=== PATIENT | female | born 1980 | race Caucasian/White ===

== ENCOUNTER 2018-06-25 22:19 | Emergency (ER) | payer BC ==
--- OUTSIDE RECORDS SUMMARY | 2018-06-25 22:22 | XMS REPORT | Continuity of Care Document ---
:1980 Author Organization Interface Problems Problem Status Onset Date Classification Date Comments Source Reported Medications Medication Details Route Status Patient Ordering Order Source Instructions Provider Date Allergies, Adverse Reactions, Alerts Substance Category Reaction Severity Reaction Status Date Comments Source type Reported Immunizations Immunization Date Given Site Status Last Updated Comments Source Results Order Results Value Reference Date Interpretation Comments Source Name Range Vital Signs Vital Sign Value Date Comments Source Encounters Location Location Encounter Encounter Reason Attending ADM DC Status Source Details Type Number For Provider Date Date Visit Outpatient [id number] HAIM 06/19 [facility] [id number] HAIM 07/31 [facility] [place] Procedures Procedure Code Date Perfomer Comments Source
--- OUTSIDE RECORDS SUMMARY | 2018-06-25 22:22 | XMS REPORT | Clinical Summary ---
:1980 Author Organization [facility] Address [address] [place] [address] Care Team Providers Name Role Phone Say Colon MD Primary Care Provider Allergies No Known Allergies Current Medications Prescription Sig. Disp. Refills Start Date End Date Status levothyroxine Take 50 mcg by Active (SYNTHROID, LEVOXYL) mouth every 50 mcg tablet morning. dexamethasone Take 2 tabs (8 12 tablet 0 06/06/2018 06/14/2018 (DECADRON) 4 MG tablet mg) every AM for 5 days then 1 tab in the AM for 2 days amoxicillin-pot Take 1 tablet 14 tablet 0 06/06/2018 2018 clavulanate by mouth every (AUGMENTIN) 875-125 mg 12 (twelve) per tablet hours for 7 days. Active Problems Problem Noted Date Migraine 06/02/2018 Encounters Date Type Specialty Care Team Description 2018 Office Visit Urogynecology Rhonda, Recurrent UTI (Primary Dx); Barbara Xiao Bladder pain; MD Rigo Routine screening for STI (sexually transmitted infection); KEITH (stress urinary incontinence, female) 06/06/2018 Emergency Emergency Medicine Lisbeth Chen Acute non-recurrent maxillary sinusitis (Primary Dx); MD Petar Sinus pain; Unilateral occipital headache; Paresthesia; Non-cardiac chest pain; Intermittent palpitations 06/02/2018 - Emergency Obstetrics and Thom Lebron Other migraine with status migrainosus, intractable (Primary Dx); 06/03/2018 Gynecology MD Tramaine Hypokalemia; Evie, Gastroesophageal reflux disease without esophagitis; Beata Espinosa MD Tension headache; Ranjana, Skip, Bilateral occipital neuralgia; DO Other migraine without status migrainosus, intractable 06/02/2018 Procedure Pass Obstetrics and Gynecology after 06/24/2017 Family History Medical History Relation Name Comments Nephrolithiasis Sister Relation Name Status Comments Brother Alive Father Alive Mother Alive Sister Alive Social History Tobacco Use Types Packs/Day Years Used Date Former Smoker Smokeless Tobacco: Never Used Comments: <1 year 20 years ago Alcohol Use Drinks/Week oz/Week Comments Yes occasionally Sex Assigned at Date Recorded Not on file Last Filed Vital Signs Vital Sign Reading Time Taken Blood Pressure 116/74 2018 9:15 AM CDT Pulse 61 2018 9:15 AM CDT Temperature 36.2 C (97.2 F) 2018 9:15 AM CDT Respiratory Rate 16 06/06/2018 11:02 AM CDT Oxygen Saturation 100% 06/06/2018 11:02 AM CDT Inhaled Oxygen Concentration - - Weight 52.2 kg (115 lb) 2018 9:15 AM CDT Height 170.2 cm (5' 7") 2018 9:15 AM CDT Body Mass Index 18.01 2018 9:15 AM CDT Plan of Treatment Date Type Specialty Care Team Description 07/29/2018 Office Visit Physical Therapy Barbara Ellis MD [address] [address] Mary Lee, PT Health Maintenance Due Date Last Done Comments CERVICAL CANCER SCREENING 2001 INFLUENZA VACCINE 05/22/2018 Procedures Procedure Name Priority Date/Time Associated Comments Diagnosis CHLAMYDIA/N. Routine 2018 4:22 Results for this GONORRHOEAE RNA, TMA PM CDT procedure are in the results section. [place](R), BACTERIAL Routine 2018 4:22 Recurrent UTI Results for this VAGINOSIS/VAGINITIS PM CDT procedure are in the results section. TEST AUTHORIZATION Routine 2018 4:22 Results for this PM CDT procedure are in the results section. MEASURE POST VOID Routine 2018 9:32 Recurrent UTI Results for this RESIDUAL AM CDT procedure are in the results section. POC URINALYSIS Routine 2018 9:26 Recurrent UTI Results for this DIPSTICK AM CDT procedure are in the results section. CT SINUS W CONTRAST STAT 06/06/2018 4:42 Results for this PM CDT procedure are in the results section. CT HEAD WO CONTRAST STAT 06/06/2018 4:30 Results for this PM CDT procedure are in the results section. CA INJECT TRIGGER Routine 06/06/2018 3:07 Results for this POINT, 1 OR 2 PM CDT procedure are in the results section. ESTIMATED GFR STAT 06/06/2018 12:25 Results for this PM CDT procedure are in the results section. COMPREHENSIVE STAT 06/06/2018 12:25 Results for this METABOLIC PANEL PM CDT procedure are in the results section. HC COMPLETE BLD COUNT STAT 06/06/2018 12:25 Results for this W/AUTO DIFF PM CDT procedure are in the results section. ECG 12-LEAD STAT 06/06/2018 11:12 Results for this AM CDT procedure are in the results section. MRI BRAIN WO CONTRAST STAT 06/02/2018 8:43 Results for this PM CDT procedure are in the results section. CT RENAL STONE STAT 06/02/2018 6:06 Results for this PROTOCOL PM CDT procedure are in the results section. ESTIMATED GFR STAT 06/02/2018 5:33 Results for this PM CDT procedure are in the results section. COMPREHENSIVE STAT 06/02/2018 5:33 Results for this METABOLIC PANEL PM CDT procedure are in the results section. HCG QUALITATIVE, URINE STAT 06/02/2018 5:33 Results for this SCREEN PM CDT procedure are in the results section. URINALYSIS SCREEN AND STAT 06/02/2018 5:33 Results for this MICROSCOPY, WITH PM CDT procedure are in REFLEX TO CULTURE the results section. HC COMPLETE BLD COUNT STAT 06/02/2018 5:33 Results for this W/AUTO DIFF PM CDT procedure are in the results section. URINE CULTURE STAT 06/02/2018 5:33 Results for this PM CDT procedure are in the results section. CT HEAD WO CONTRAST STAT 06/02/2018 4:39 Results for this PM CDT procedure are in the results section. after 06/24/2017 Results CHLAMYDIA/N. GONORRHOEAE RNA, TMA (2018 4:22 PM) Chlamydia trachomatis RNA, TMA NOT DETECTED [facility] Neisseria gonorrhoeae RNA, TMA NOT DETECTED [facility] Comment: REFERENCE RANGE:NOT DETECTED This test was performed using the APTIMA(R) COMBO2 Assay (GENKontestPROBE). Resulting Agency Comment Performing Organization Information: Site ID: [id number] Name: [facility] Address: [address] [place] [address], [place] [address] Director: Paramjit Cannon MD Performing Organization Address City/State/Zipcode Phone Number [facility] [address] [place] [address] [facility] TEST AUTHORIZATION (2018 4:22 PM) TEST(S) ORDERED ON [facility] [employer] [facility] [facility] TEST CODE: [id number] [facility] [facility] CLIENT CONTACT: JODY [facility] [facility] REPORT ALWAYS MESSAGE [facility] SIGNATURE Comment: [facility] [facility] The laboratory testing on this patient was verbally requested or confirmed by the ordering physician or his or her authorized technical sales representatives after contact with an employee of [facility]. Federal regulations require that we maintain on file written authorization for all laboratory testing.Accordingly we are asking that the ordering physician or his or her authorized technical sales representatives sign a copy of this report and promptly return it to the client relation specialist. Signature: (Always message) [facility] Comment: [facility] [facility] Please fax this signed form to [phone]. Please do not attempt to return this document by other methods. Documents will not be viewed by a technical sales representatives. Please do not use this fax number for other service requests. Resulting Agency Comment Performing Organization Information: Site ID: [id number] Name: [facility] Address: [address] [place] [address] Director: Dr. Logan Veloz Performing Organization Address City/State/Zipcode Phone Number [facility] [facility] [address] [place] [address] SURESWAB(R), BACTERIAL VAGINOSIS/VAGINITIS (2018 4:22 PM) BV category NOT SUPPORTIVE [facility] Lactobacillus species NOT DETECTED Log (cells/mL) [facility] Atopobium vaginae NOT DETECTED Log (cells/mL) [facility] Megasphaera species NOT DETECTED Log (cells/mL) [facility] Gardnerella vaginalis NOT DETECTED Log (cells/mL) [facility] Comment: REFERENCE RANGE: BV Category: NOT SUPPORTIVE NOT SUPPORTIVE OF BV: The pattern of results is not supportive of a diagnosis of BV: 1) Presence of Lactobacillus spp., G. vaginalis levels less than 6.0 log cells/mL, and absence of A. vaginae and Megasphaera spp; or 2) Absence of all targeted organisms; or 3) Absence of Lactobacillus spp. plus G. vaginalis detected at levels less than 6.0 log cells/mL and absence of A. vaginae and Megasphaera spp. EQUIVOCAL FOR BV: The pattern of results is neither supportive nor not supportive of a diagnosis of BV. The patient may be in transition into or out of BV: Presence of Lactobacillus spp. plus G. vaginalis (greater or equal to 6.0 log cells/mL) and/or one of the other BV-associated pathogens. SUPPORTIVE OF BV: The pattern of results is supportive of a diagnosis of BV: Absence of Lactobacillus spp. and presence of G. vaginalis greater than or equal to 6.0 log cells/mL and/or one or both of the other BV-associated pathogens. Concentration for Lactobacilli (L. acidophilus/crispatus, L. jensenii) are collectively reported under the term "Lactobacillus spp.", as these species are among the peroxide producing Lactobacilli thought to be protective against bacterial vaginosis. Atopobium vaginae, Megasphaera spp., and Gardnerella (greater than 6.0 log cells/mL) have been associated with vaginosis when present in the absence of peroxidase producing Lactobacilli. This test was developed and its analytical performance characteristics have been determined by [facility]. It has not been cleared or approved by FDA. This assay has been validated pursuant to the CLIA regulations and is used for clinical purposes. Sureswab(r) trichomonas NOT DETECTED [facility] vaginalis RNA, QL, TMA Comment: REFERENCE RANGE: NOT DETECTED This test was performed using the APTIMA(R) Trichomonas vaginalis assay (Gen-Probe(R)). For additional information, please refer to [email or web address] C. albicans, DNA NOT DETECTED [facility] C. glabrata, DNA NOT DETECTED [facility] C. tropicalis, DNA NOT DETECTED [facility] C. parapsilosis, DNA NOT DETECTED [facility] Comment: REFERENCE RANGE: NOT DETECTED This test was developed and its analytical performance characteristics have been determined by [facility]. It has not been cleared or approved by FDA. This assay has been validated pursuant to the CLIA regulations and is used for clinical purposes. Specimen Swab Resulting Agency Comment Performing Organization Information: Site ID: [id number] Name: [facility] Address: [address] [place] [id number] Director: Paramjit Cannon MD Performing Organization Address City/State/Zipcode Phone Number [facility] [address] [place] [phone] [facility] Measure post void residual (2018 9:32 AM) Total volume, urine 0ml POC urinalysis dipstick (2018 9:26 AM) Color urine, POC Yellow Clarity urine, POC Clear Glucose urine, POC Negative Negative Bilirubin urine, POC Negative Negative Ketones urine, POC Negative Negative Specific gravity urine, POC 1.020 1.005 - 1.030 Blood urine, POC Negative Negative pH urine, POC 6.0 5.0, 5.5, 6.0, 6.5, 7.0, 7.5, 8.0, 8.5 Protein urine, POC Negative Negative Urobilinogen urine, POC <2.0 <2.0 Nitrite urine, POC Negative Negative Leukocyte esterase urine, POC Negative Negative Specimen Urine CT Sinus W Contrast (06/06/2018 4:42 PM) Narrative Performed At Study: CT SINUS W CONTRAST. HM RADIANT HISTORY: Sinusitisacute ( 4wks)uncomplicated. COMPARISON:None. TECHNIQUE: Multiple axial CT images of the paranasal sinuses performed with intravenous contrast. Sagittal and coronal reconstructions performed. CT imaging was performed with iterative reconstruction technique and/or automated exposure control to reduce radiation dose. FINDINGS: Maxillary sinuses: There is mild mucosal thickening of the bilateral maxillary sinuses mostly along the floors up to 7 mm in the right. No air-fluid levels. The maxillary infundibula and ostia are patent. Ethmoid sinuses: Well-developed and well aerated without fluid or mucosal thickening. Frontal sinuses: Left frontal sinuses well-developed. The right frontal sinus is hypoplastic. The frontal drainage pathways are patent bilaterally. Sphenoid sinuses: Well developed and well aerated without mucosal thickening or fluid. The bilateral sphenoid ostia are patent. There is aeration of the sphenoid recesses, anatomic variant. Very thin bone is seen along the carotid canal bilaterally bulging into the posterior lateral hoang of the sphenoid sinuses, respectively. Nasal fossa: Well aerated. The olfactory recesses are well aerated. The nasal septum is slightly deviated to the left with a small spur at its apex. The cribriform plates, lateral lamellae, and fovea ethmoidalis are intact. Others: There are no signs of osseous destruction. The intraorbital structures and the orbital hoang are within normal limits. The visualized intracranial structures are unremarkable. Overlying soft tissues are unremarkable. No abnormal enhancement. IMPRESSION: Very mild maxillary sinus disease. Drainage pathways are patent. [facility]-[id number] Procedure Note [facility], Radiology Results Incoming - 06/06/2018 4:55 PM CDT Study: CT SINUS W CONTRAST. HISTORY: Sinusitis acute ( 4wks) uncomplicated. COMPARISON:None. TECHNIQUE: Multiple axial CT images of the paranasal sinuses performed with intravenous contrast. Sagittal and coronal reconstructions performed. CT imaging was performed with iterative reconstruction technique and/or automated exposure control to reduce radiation dose. FINDINGS: Maxillary sinuses: There is mild mucosal thickening of the bilateral maxillary sinuses mostly along the floors up to 7 mm in the right. No air-fluid levels. The maxillary infundibula and ostia are patent. Ethmoid sinuses: Well-developed and well aerated without fluid or mucosal thickening. Frontal sinuses: Left frontal sinuses well-developed. The right frontal sinus is hypoplastic. The frontal drainage pathways are patent bilaterally. Sphenoid sinuses: Well developed and well aerated without mucosal thickening or fluid. The bilateral sphenoid ostia are patent. There is aeration of the sphenoid recesses, anatomic variant. Very thin bone is seen along the carotid canal bilaterally bulging into the posterior lateral hoang of the sphenoid sinuses, respectively. Nasal fossa: Well aerated. The olfactory recesses are well aerated. The nasal septum is slightly deviated to the left with a small spur at its apex. The cribriform plates, lateral lamellae, and fovea ethmoidalis are intact. Others: There are no signs of osseous destruction. The intraorbital structures and the orbital hoang are within normal limits. The visualized intracranial structures are unremarkable. Overlying soft tissues are unremarkable. No abnormal enhancement. IMPRESSION: Very mild maxillary sinus disease. Drainage pathways are patent. [facility]-[id number] Performing Organization Address City/State/Zipcode Phone Number [facility] [address] [place] [address] CT Head Wo Contrast (06/06/2018 4:30 PM)Only the most recent of2 resultswithin the time period is included. Narrative Performed At [facility]:Headacheacutesevereworst [place] of life COMPARISON:CT head 06/02/2018. MRI brain 06/02/2018. TECHNIQUE: Noncontrast head CT performed using radiation dose reduction techniques.Technical factors are evaluated and adjusted to ensure appropriate moderation of exposure.Automated dose management technology is applied to adjust radiation exposure while achieving a diagnostic quality image. FINDINGS: No significant interval change appearing since the prior CT from 06/02/2018. Again noted is subtle biparietal subcortical hypoattenuation, which corresponds to prominent perivascular spaces on the MRI from 06/02/2018, for example image 12 of series 10 on that study. No acute intra or extra-axial hemorrhage identified. The kirk-white matter differentiation is preserved. The basal ganglia, thalami, midbrain, renato and cervicomedullary junction are unremarkable. No mass, mass effect, or midline shift is seen. Ventricles and sulci are normal in appearance for patient's age.Basal cisterns are patent. Calvarium is intact. The orbital contents are symmetric and normal in appearance. The visualized paranasal sinuses are unremarkable. The mastoid air cells and middle ear cavities are clear. IMPRESSION: No acute intracranial abnormality identified, unchanged when compared with prior CT from 06/02/2018. [facility]-[id number] Procedure Note Interface, Radiology Results Incoming - 06/06/2018 4:50 PM CDT EXAMINATION: CT HEAD WO CONTRAST CLINICAL HISTORY: Headache acute severe worst [place] of [place] COMPARISON: CT head 06/02/2018. MRI brain 06/02/2018. TECHNIQUE: Noncontrast head CT performed using radiation dose reduction techniques. Technical factors are evaluated and adjusted to ensure appropriate moderation of exposure. Automated dose management technology is applied to adjust radiation exposure while achieving a diagnostic quality image. FINDINGS: No significant interval change appearing since the prior CT from 06/02/2018. Again noted is subtle biparietal subcortical hypoattenuation, which corresponds to prominent perivascular spaces on the MRI from 06/02/2018, for example image 12 of series 10 on that study. No acute intra or extra-axial hemorrhage identified. The kirk-white matter differentiation is preserved. The basal ganglia, thalami, midbrain, renato and cervicomedullary junction are unremarkable. No mass, mass effect, or midline shift is seen. Ventricles and sulci are normal in appearance for patient's age. Basal cisterns are patent. Calvarium is intact. The orbital contents are symmetric and normal in appearance. The visualized paranasal sinuses are unremarkable. The mastoid air cells and middle ear cavities are clear. IMPRESSION: No acute intracranial abnormality identified, unchanged when compared with prior CT from 06/02/2018. [facility]-[id number] Performing Organization Address City/State/Zipcode Phone Number [facility] [address] [place] [address] DIGITAL BLOCK (06/06/2018 3:07 PM) Narrative Performed At Lisbeth Chen MD 06/09/2018 11:17 PM Digital Block/Trigger Injections Performed by: ALLAN RAMSEY Authorized by: LISBETH CHEN Consent: Consent obtained:Verbal Consent given by:Patient Risks discussed:Infection, pain, swelling and unsuccessful block Alternatives discussed:Alternative treatment Indications: Indications:Pain relief Location: Therapuetic Trigger Point Injection:2 Pre-procedure details: Neurovascular status: intact Skin preparation:Alcohol Procedure details (see MAR for exact dosages): Needle gauge:24 G Anesthetic injected:Lidocaine 2% w/o epi Injection procedure:Anatomic landmarks identified, anatomic landmarks palpated, negative aspiration for blood and incremental injection Post-procedure details: Outcome:Pain improved Patient tolerance of procedure:Tolerated well, no immediate complications Comments: Patient initially reported pain in the greater occipitals but later identified the left upper and lateral border of the scapula as the region of pain. 2 injections were given at this site. Estimated GFR (06/06/2018 12:25 PM)Only the most recent of2 resultswithin the time period is included. GFR Non Af Amer >90 mL/min/1.73 m2 [facility] DEPARTMENT OF PATHOLOGY AND GENOMIC MEDICINE GFR Af Amer >90 mL/min/1.73 m2 [facility] DEPARTMENT OF Comment: PATHOLOGY AND GENOMIC Chronic kidney disease: <60 mL/min/1.73m2 MEDICINE Kidney failure: <15 mL/min/1.73m2 The estimated GFR is calculated from the IDMS-traceable Modification of Diet in Renal Disease Equation. The accuracy of the calculation is poor when the creatinine is normal. Calculated values >90 mL/min/1.73m2 are not reported. This equation has not been validated in children (<18 years), women, the elderly (>70 years), or ethnic groups other than Caucasians and Americans. Specimen Plasma specimen Performing Organization Address City/State/Zipcode Phone Number [facility] DEPARTMENT OF PATHOLOGY AND [address] [place], [place] [id number] [place] [address] CBC with platelet and differential (06/06/2018 12:25 PM)Only the most recent of2 resultswithin the time period is included. WBC 6.20 4.50 - 11.00 k/uL [facility] DEPARTMENT OF PATHOLOGY AND GENOMIC MEDICINE RBC 5.06 4.20 - 5.50 m/uL [facility] DEPARTMENT OF PATHOLOGY AND GENOMIC MEDICINE HGB 13.9 12.0 - 16.0 g/dL [facility] DEPARTMENT OF PATHOLOGY AND GENOMIC MEDICINE HCT 41.8 37.0 - 47.0 % [facility] DEPARTMENT OF PATHOLOGY AND GENOMIC MEDICINE MCV 82.6 82.0 - 100.0 fL [facility] DEPARTMENT OF PATHOLOGY AND GENOMIC MEDICINE MCH 27.5 27.0 - 34.0 pg [facility] DEPARTMENT OF PATHOLOGY AND GENOMIC MEDICINE MCHC 33.3 31.0 - 37.0 g/dL [facility] DEPARTMENT OF PATHOLOGY AND GENOMIC MEDICINE RDW - SD 38.6 37.0 - 55.0 fL [facility] DEPARTMENT OF PATHOLOGY AND GENOMIC MEDICINE MPV 9.6 8.8 - 13.2 fL [facility] DEPARTMENT OF PATHOLOGY AND GENOMIC MEDICINE Platelet count 305 150 - 400 k/uL [facility] DEPARTMENT OF PATHOLOGY AND GENOMIC MEDICINE Nucleated RBC 0.00 /100 WBC [facility] DEPARTMENT OF PATHOLOGY AND GENOMIC MEDICINE Neutrophils 74.9 (H) 39.0 - 69.0 % [facility] DEPARTMENT OF PATHOLOGY AND GENOMIC MEDICINE Lymphocytes 19.2 (L) 25.0 - 45.0 % [facility] DEPARTMENT OF PATHOLOGY AND GENOMIC MEDICINE Monocytes 4.5 0.0 - 10.0 % [facility] DEPARTMENT OF PATHOLOGY AND GENOMIC MEDICINE Eosinophils 0.6 0.0 - 5.0 % [facility] DEPARTMENT OF PATHOLOGY AND GENOMIC MEDICINE Basophils 0.6 0.0 - 1.0 % [facility] DEPARTMENT OF PATHOLOGY AND GENOMIC MEDICINE Immature granulocytes 0.2Comment: 0.0 - 1.0 % [facility] DEPARTMENT OF "Immature PATHOLOGY AND GENOMIC granulocytes" MEDICINE (promyelocytes, myelocytes, metamyelocytes) Specimen Blood Performing Organization Address City/State/Zipcode Phone Number [facility] DEPARTMENT OF PATHOLOGY AND [address] [place] [address] [employer] MEDICINE Comprehensive metabolic panel (06/06/2018 12:25 PM)Only the most recent of2 resultswithin the time period is included. Sodium 141 135 - 148 mEq/L [facility] DEPARTMENT OF PATHOLOGY AND GENOMIC MEDICINE Potassium 3.9 3.5 - 5.0 mEq/L [facility] DEPARTMENT OF PATHOLOGY AND GENOMIC MEDICINE Chloride 100 98 - 112 mEq/L [facility] DEPARTMENT OF PATHOLOGY AND GENOMIC MEDICINE CO2 25 24 - 31 mEq/L [facility] DEPARTMENT OF PATHOLOGY AND GENOMIC MEDICINE Anion gap 16@ANIO (H) 7 - 15 mEq/L [facility] DEPARTMENT OF PATHOLOGY AND GENOMIC MEDICINE BUN 7 6 - 20 mg/dL [facility] DEPARTMENT OF PATHOLOGY AND GENOMIC MEDICINE Creatinine 0.6 0.5 - 0.9 mg/dL [facility] DEPARTMENT OF PATHOLOGY AND GENOMIC MEDICINE Glucose 97 65 - 99 mg/dL [facility] DEPARTMENT OF PATHOLOGY AND GENOMIC MEDICINE Calcium 9.9 8.3 - 10.2 mg/dL [facility] DEPARTMENT OF PATHOLOGY AND GENOMIC MEDICINE Protein 8.1 6.3 - 8.3 g/dL [facility] DEPARTMENT OF Comment: PATHOLOGY AND GENOMIC [place] 4.6-7.0 g/dL MEDICINE 1 week 4.4-7.6 g/dL 7 months-1year5.1-7.3 g/dL 1-2 years5.6-7.5 g/dL >3 years6.0-8.0 g/dL 18-150 6.3-8.3 g/dL Albumin 4.7 3.5 - 5.0 g/dL [facility] DEPARTMENT OF PATHOLOGY AND GENOMIC MEDICINE A/G ratio 1.4 0.7 - 3.8 [facility] DEPARTMENT OF PATHOLOGY AND GENOMIC MEDICINE Alkaline phosphatase 43 35 - 104 U/L [facility] DEPARTMENT OF PATHOLOGY AND GENOMIC MEDICINE AST 16 10 - 35 U/L [facility] DEPARTMENT OF PATHOLOGY AND GENOMIC MEDICINE ALT 15 5 - 50 U/L [facility] DEPARTMENT OF PATHOLOGY AND GENOMIC MEDICINE Total bilirubin 0.6 0.0 - 1.2 mg/dL [facility] DEPARTMENT OF PATHOLOGY AND GENOMIC MEDICINE Specimen Plasma specimen Performing Organization Address City/[facility] Phone Number [facility] DEPARTMENT OF PATHOLOGY AND [address] [place] [address] [facility] ECG 12 lead (06/06/2018 11:12 AM) Ventricular rate 82 [facility] Atrial rate 82 [facility] MUSE CA interval 138 [facility] MUSE QRSD interval 86 HM MUSE QT interval 356 [facility] QTC interval 415 [facility] P axis 1 77 HM MUSE QRS axis 1 97 [facility] T wave axis 59 [facility] EKG impression Normal sinus rhythm-Rightward axis-Borderline [facility] ECG-No previous ECGs available- Performing Organization Address City/[facility] Phone Number [facility] [address] [place] [address] MRI Brain Wo Contrast (06/02/2018 8:43 PM) Narrative Performed At EXAMINATION: MRI BRAIN WO CONTRAST RADIANT CLINICAL HISTORY: intractable headache COMPARISON:None TECHNIQUE: Multiplanar and multisequence MRI imaging of the brain was obtained without contrast. FINDINGS: Axial diffusion weighted images of the brain shows no diffusion restriction to suggest acute ischemia. T1 images shows no intracranial mass or mass effect. Gradient images shows no abnormal hemosiderin deposition abnormality. There is no evidence of acute hemorrhage. FLAIR imaging shows no significant FLAIR signal changes to suggest prior ischemic or inflammatory insult. No migraine headache related FLAIR signal changes identified. T2 imaging shows no acute hydrocephalus or extra-axial fluid collection identified. The major flow voids in the skull base are identified.Minimal mucosal thickening is noted in the inferior maxillar y sinuses as well as a retention cysts. There is no acute fluid level. Orbits are intact. Soft tissues are within normal limits. Sagittal T1 images shows no midline mass lesion. The craniocervical junction is intact.Coronal images shows no midline shift or gross asymmetries. IMPRESSION: No acute intracranial abnormality identified. No abnormality identified to explain patient's headache. [facility]-[id number] Procedure Note Interface, Radiology Results Incoming - 06/02/2018 9:38 PM CDT EXAMINATION: MRI BRAIN WO CONTRAST CLINICAL HISTORY: intractable headache COMPARISON: None TECHNIQUE: Multiplanar and multisequence MRI imaging of the brain was obtained without contrast. FINDINGS: Axial diffusion weighted images of the brain shows no diffusion restriction to suggest acute ischemia. T1 images shows no intracranial mass or mass effect. Gradient images shows no abnormal hemosiderin deposition abnormality. There is no evidence of acute hemorrhage. FLAIR imaging shows no significant FLAIR signal changes to suggest prior ischemic or inflammatory insult. No migraine headache related FLAIR signal changes identified. T2 imaging shows no acute hydrocephalus or extra-axial fluid collection identified. The major flow voids in the skull base are identified. Minimal mucosal thickening is noted in the inferior maxillary sinuses as well as a retention cysts. There is no acute fluid level. Orbits are intact. Soft tissues are within normal limits. Sagittal T1 images shows no midline mass lesion. The craniocervical junction is intact. Coronal images shows no midline shift or gross asymmetries. IMPRESSION: No acute intracranial abnormality identified. No abnormality identified to explain patient's headache. [facility]-[id number] Performing Organization Address City/State/Zipcode Phone Number [facility] [address] [place] [address] CT Renal Stone Protocol (06/02/2018 6:06 PM) Narrative Performed At EXAMINATION:CT RENAL STONE PROTOCOL [facility] CLINICAL HISTORY:Flank painstone disease suspected TECHNIQUE: Multiple axial images of the abdomen and pelvis were obtained without intravenous administration of iodinated contrast. Lack of IV contrast reduces the sensitivity of the exam.Sagittal and coronal computerized reformatted images were also obtained. CT imaging was performed with iterative reconstruction techniques and/or automated exposure control to reduce radiation dose. COMPARISON:None. IMPRESSION: 1.The unenhanced kidneys, ureters, and urinary bladder are within normal limits.There is no hydronephrosis or definite nephrolithiasis. A few tiny calcifications in the pelvis are felt to all represent phleboliths. 2.There are couple of benign cysts in the right hepatic lobe measuring up to 1 cm. 3.The unenhanced spleen, pancreas, gallbladder, and adrenals are within normal limits. 4.No small or large bowel obstruction or inflammation is seen.The stomach is unremarkable. The appendix is not definitely seen, but there are no inflammatory changes near the cecum. 5.Uterus and adnexa are unremarkable. 6.There is no abnormal fluid collection or significant lymphadenopathy. 7.No significant skeletal abnormality is seen. [id number] Procedure Note [facility], Radiology Results Incoming - 06/02/2018 6:27 PM CDT EXAMINATION: CT RENAL STONE PROTOCOL CLINICAL HISTORY: Flank pain stone disease suspected TECHNIQUE: Multiple axial images of the abdomen and pelvis were obtained without intravenous administration of iodinated contrast. Lack of IV contrast reduces the sensitivity of the exam. Sagittal and coronal computerized reformatted images were also obtained. CT imaging was performed with iterative reconstruction techniques and/or automated exposure control to reduce radiation dose. COMPARISON: None. IMPRESSION: 1. The unenhanced kidneys, ureters, and urinary bladder are within normal limits. There is no hydronephrosis or definite nephrolithiasis. A few tiny calcifications in the pelvis are felt to all represent phleboliths. 2. There are couple of benign cysts in the right hepatic lobe measuring up to 1 cm. 3. The unenhanced spleen, pancreas, gallbladder, and adrenals are within normal limits. 4. No small or large bowel obstruction or inflammation is seen. The stomach is unremarkable. The appendix is not definitely seen, but there are no inflammatory changes near the cecum. 5. Uterus and adnexa are unremarkable. 6. There is no abnormal fluid collection or significant lymphadenopathy. 7. No significant skeletal abnormality is seen. [id number] Performing Organization Address City/State/Zipcode Phone Number [facility] [address] [place] [address] Urinalysis screen and microscopy, with reflex to culture (06/02/2018 5:33 PM) Specimen site Catheterized [facility] DEPARTMENT OF PATHOLOGY AND GENOMIC MEDICINE Color, UA Straw [facility] DEPARTMENT OF PATHOLOGY AND GENOMIC MEDICINE Appearance, UA Clear [facility] DEPARTMENT OF PATHOLOGY AND GENOMIC MEDICINE Specific gravity, UA 1.008 1.001 - 1.035 [facility] DEPARTMENT OF PATHOLOGY AND GENOMIC MEDICINE pH, UA 7.0 5.0 - 8.5 [facility] DEPARTMENT OF PATHOLOGY AND GENOMIC MEDICINE Protein, UA Negative Negative [facility] DEPARTMENT OF PATHOLOGY AND GENOMIC MEDICINE Glucose, UA Negative Negative [facility] DEPARTMENT OF PATHOLOGY AND GENOMIC MEDICINE Ketones, UA Negative Negative [facility] DEPARTMENT OF PATHOLOGY AND GENOMIC MEDICINE Bilirubin, UA Negative Negative [facility] DEPARTMENT OF PATHOLOGY AND GENOMIC MEDICINE Blood, UA Negative Negative [facility] DEPARTMENT OF PATHOLOGY AND GENOMIC MEDICINE Nitrite, UA Negative Negative [facility] DEPARTMENT OF PATHOLOGY AND GENOMIC MEDICINE Urobilinogen, UA <2.0 <2.0 [facility] DEPARTMENT OF PATHOLOGY AND GENOMIC MEDICINE Leukocyte esterase, UA Negative Negative [facility] DEPARTMENT OF PATHOLOGY AND GENOMIC MEDICINE Epithelial cells, UA <1 /HPF [facility] DEPARTMENT OF PATHOLOGY AND GENOMIC MEDICINE WBC, UA <1 0 - 4 /HPF [facility] DEPARTMENT OF PATHOLOGY AND GENOMIC MEDICINE RBC, UA <1 0 - 5 /HPF [facility] DEPARTMENT OF PATHOLOGY AND GENOMIC MEDICINE Bacteria, UA None seen None seen [facility] DEPARTMENT OF PATHOLOGY AND GENOMIC MEDICINE Yeast, UA None seen [facility] DEPARTMENT OF PATHOLOGY AND GENOMIC MEDICINE Yeast with pseudohyphae, UA None seen [facility] DEPARTMENT OF PATHOLOGY AND GENOMIC MEDICINE Specimen Urine Performing Organization Address City/State/Zipcode Phone Number [facility] DEPARTMENT OF PATHOLOGY AND [address] [place] [phone] [facility] hCG qualitative, urine screen (06/02/2018 5:33 PM) hCG qualitative, urine NegativeComment: [facility] DEPARTMENT OF Sensitivity of HCG test: 25 PATHOLOGY AND GENOMIC mIU/mL MEDICINE Specimen Urine Performing Organization Address City/State/Zipcode Phone Number [facility] DEPARTMENT OF PATHOLOGY AND [address] [place] [phone] [facility] MEDICINE Urine culture (06/02/2018 5:33 PM) Urine culture SEE COMMENTComment: Bacteriuria [facility] DEPARTMENT OF PATHOLOGY screen negative. AND GENOMIC MEDICINE Performing Organization Address City/State/Zipcode Phone Number [facility] DEPARTMENT OF PATHOLOGY AND [address] [place] [phone] GENOMIC MEDICINE after 06/24/2017 Insurance Payer Benefit Plan / Group Subscriber ID Type Phone Address [facility] [employer] IN AREA/O BLUE ESSENTIALS xxxxxxxxxxxx O
[2018-06-25] MEDS ORDERED: predniSONE 20 MG TAB ONE (22:56)
[2018-06-25] MEDS ORDERED: CYCLOBENZAPRINE 10 MG TAB ONE (22:56)
--- NOTE | 2018-06-25 23:19 | EDPHYS ---
Physician Documentation [facility] Name: Sangita Goncalves Age: 38 yrs Sex: Female : 1980 Arrival Date: 06/25/2018 Time: 22:23 Bed 14 Private MD: Say Colon E ED Physician Gilberto Burleson HPI: 06/25 23:14 This 38 yrs old Female presents to ER via Ambulatory with complaints of Neck rn Swelling, HIGH HEART RATE,LEFT SIDE NUMBNESS. 23:14 The patient or guardian complains of pain, that is chronic. The symptoms are located rn diffusely. Onset: The symptoms/episode began/occurred 1 month(s) ago. Associated signs and symptoms: Pertinent positives: headache, Paresthesias Pertinent negatives: fever, bladder incontinence, bowel incontinence, vomiting, weakness. The pain does not radiate. Severity of symptoms: At their worst the symptoms were moderate, in the emergency department the symptoms have improved. The patient has experienced similar episodes in the past. The patient has been recently seen by a physician:. Reports on and off headache and neck pain for 1 month, has been seen multiple times, has had ct scans, MRI of brain, just saw neuro today, states outpt MRI neck ordered for 1 week and still waiting, pain got worse so came in for MRI. NO new symptoms, No fever. . 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 - Ebola Screening: : Patient negative for fever greater than or equal to 101.5 degrees Fahrenheit, and additional compatible Ebola Virus Disease symptoms Patient denies exposure to infectious person Patient denies travel to an Ebola-affected area in the 21 days before illness onset. - Social history:: Smoking status: Patient/guardian denies using tobacco, Patient/guardian denies using alcohol, street drugs. - Family history:: not pertinent. - Hospitalizations: : No recent hospitalization is reported. ROS: 23:14 Constitutional: Negative for fever, chills, and weight loss, Eyes: Negative for injury, rn pain, redness, and discharge, ENT: Negative for injury, pain, and discharge, Neck: + neck pain Cardiovascular: Negative for edema, Respiratory: Negative for shortness of breath, cough, wheezing, and pleuritic chest pain, Abdomen/GI: Negative for abdominal pain, nausea, vomiting, diarrhea, and constipation, MS/Extremity: Negative for injury and deformity, Skin: Negative for injury, rash, and discoloration, Neuro: Negative for weakness, and seizure. Exam: 23:14 Constitutional: This is a well developed, well nourished patient who is awake, alert, rn appears anxious Head/Face: Normocephalic, atraumatic. Eyes: Pupils equal round and reactive to light, extra-ocular motions intact. Lids and lashes normal. Conjunctiva and sclera are non-icteric and not injected. Cornea within normal limits. Periorbital areas with no swelling, redness, or edema. ENT: Nares patent. No nasal discharge, no septal abnormalities noted. Oropharynx with no redness, swelling, or masses, exudates, or evidence of obstruction, uvula midline. Mucous membranes moist. Neck: Trachea midline, no thyromegaly or masses palpated, and no cervical lymphadenopathy. Supple, full range of motion without nuchal rigidity, or vertebral point tenderness. No Meningismus. Cardiovascular: Regular rate and rhythm with a normal S1 and S2. No gallops, murmurs, or rubs. Normal PMI, no JVD. No pulse deficits. Respiratory: Lungs have equal breath sounds bilaterally, clear to auscultation and percussion. No rales, rhonchi or wheezes noted. No increased work of breathing, no retractions or nasal flaring. MS/ Extremity: Pulses equal, no cyanosis. Neurovascular intact. Full, normal range of motion. Equal circumference. Neuro: Awake and alert, GCS 15, oriented to person, place, time, and situation. Cranial nerves II-XII grossly intact. Motor strength 5/5 in all extremities. Cerebellar exam normal. Normal gait. Vital Signs: 22:37 BP 129 / 95; Pulse 85; Resp 16; Temp 97.9(O); Pulse Ox 100% ; Weight 58.97 kg; Height 5 ao ft. 4 in. (162.56 cm); Pain 8/10; 22:37 Body Mass Index 22.31 (58.97 kg, 162.56 cm) ao MDM: 22:26 Patient medically screened. rn 23:14 Differential diagnosis: arthritis, Cervical Disc Herniation Cervical Discogenic Pain rn Cervical Raiculopathy Cervical Spondylosis cervical strain, Osteoarthritis Spondylolisthesis Spondylosis torticollis. Data reviewed: vital signs, nurses notes, old medical records, radiologic studies, plain films, and as a result, I will discharge patient. Counseling: I had a detailed discussion with the patient and/or guardian regarding: the historical points, exam findings, and any diagnostic results supporting the discharge/admit diagnosis, lab results, radiology results, the need for outpatient follow up, to return to the emergency department if symptoms worsen or persist or if there are any questions or concerns that arise at home. Special discussion: I discussed with the patient/guardian in detail that at this point there is no indication for admission to the hospital. It is understood, however, that if the symptoms persist or worsen the patient needs to return immediately for re-evaluation. Based on the history and exam findings, there is no indication for further emergent testing or inpatient evaluation. I discussed with the patient/guardian the need to see the neurologist for further evaluation of the symptoms. I discussed with the patient/guardian the need to see the primary care provider for further evaluation of the symptoms. ED course: Has cardiology appt tomorrow for u/s of carotids and echo, doesn't want to take medications here, will give prescription, xray taken earlier today negative for acute findings. . Administered Medications: 22:50 Not Given (Duplicate Order): Decadron 10 mg IM once rn 23:25 Not Given (Patient Refused): Flexeril 10 mg PO once ao 23:25 Not Given (Patient Refused): predniSONE 60 mg PO once ao Disposition: 06/25/18 23:18 Discharged to Home. Impression: Headache, Neck pain. - Condition is Stable. - Discharge Instructions: General Headache Without Cause, Migraine Headache. - Prescriptions for Cyclobenzaprine 10 mg Oral Tablet - take 1 tablet by ORAL route every 8 hours As needed; 20 tablet. Medrol (Sandor) 4 mg Oral Tablets, Dose Pack - take 1 tablet by ORAL route as directed - follow package instructions; 1 packet. - Medication Reconciliation Form, Thank You Letter, Antibiotic Education, Prescription Opioid Use form. - Follow up: Say Colon MD; When: As needed; Reason: Recheck today's complaints, Re-evaluation by your physician. - Problem is an ongoing problem. - Symptoms have improved. Signatures: Gilberto Burleson MD MD rn Ortiz, Alex, RN RN ao Corrections: (The following items were deleted from the chart) 23:27 23:18 06/25/2018 23:18 Discharged to Home. Impression: Headache; Neck pain. Condition ao is Stable. Forms are Medication Reconciliation Form, Thank You Letter, Antibiotic Education, Prescription Opioid Use. Follow up: Say Colon; When: As needed; Reason: Recheck today's complaints, Re-evaluation by your physician. Problem is an ongoing problem. Symptoms have improved. rn
--- NOTE | 2018-06-25 23:19 | ER ---
Nurse's Notes [facility] Name: Sangita Goncalves Age: 38 yrs Sex: Female : 1980 Arrival Date: 06/25/2018 Time: 22:23 Bed 14 Private MD: Say Colon E Diagnosis: Headache;Neck pain Presentation: 06/25 22:30 Presenting complaint: Patient states: Pain in the back of the head that radiates to the ao neck. Patient also complains of left side numbness and tingling and chest pain. Patient points at epigastric area. Patient report going to [facility] twice. [facility] run test and CT that was negative. Transition of care: patient was not received from another setting of care. Onset of symptoms is unknown. Risk Assessment: Do you want to hurt yourself or someone else? Patient reports no desire to harm self or others. Initial Sepsis Screen: Does the patient meet any 2 criteria? No. Patient's initial sepsis screen is negative. Does the patient have a suspected source of infection? No. Patient's initial sepsis screen is negative. Care prior to arrival: None. 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 - Ebola Screening: : Patient negative for fever greater than or equal to 101.5 degrees Fahrenheit, and additional compatible Ebola Virus Disease symptoms Patient denies exposure to infectious person Patient denies travel to an Ebola-affected area in the 21 days before illness onset. - Social history:: Smoking status: Patient/guardian denies using tobacco, Patient/guardian denies using alcohol, street drugs. - Family history:: not pertinent. - Hospitalizations: : No recent hospitalization is reported. Screenin:40 Abuse screen: Denies threats or abuse. Denies injuries from another. Nutritional ao screening: No deficits noted. Tuberculosis screening: No symptoms or risk factors identified. Fall Risk None identified. Assessment: 22:38 General: Appears in no apparent distress. comfortable, Behavior is calm, cooperative, ao appropriate for age. Pain: Complains of pain in scalp. Pain: Complains of pain in chest. Neuro: Level of Consciousness is awake, alert, obeys commands, Oriented to person, place, time, situation, Appropriate for age Moves all extremities. Full function Speech is normal. Cardiovascular: Capillary refill < 3 seconds Patient's skin is warm and dry. Cardiovascular: Reports chest pain. Respiratory: Airway is patent Respiratory effort is even, unlabored, Respiratory pattern is regular, symmetrical. GI: Abdomen is flat, non-distended. : No signs and/or symptoms were reported regarding the genitourinary system. EENT: No signs and/or symptoms were reported regarding the EENT system. Derm: No signs and/or symptoms reported regarding the dermatologic system. Musculoskeletal: Circulation, motion, and sensation intact. Range of motion: intact in all extremities. Vital Signs: 22:37 BP 129 / 95; Pulse 85; Resp 16; Temp 97.9(O); Pulse Ox 100% ; Weight 58.97 kg; Height 5 ao ft. 4 in. (162.56 cm); Pain 8/10; 22:37 Body Mass Index 22.31 (58.97 kg, 162.56 cm) ao ED Course: 22:23 Patient arrived in ED. al2 22:25 Say Colon MD is Private Physician. al2 22:26 Jonas Amato RN is Primary Nurse. ao 22:26 Gilberto Burleson MD is Attending Physician. rn 22:34 Triage completed. ao 22:37 Arm band placed on right wrist. Patient placed in an exam room, in a wheelchair, on ao pulse oximetry, Patient notified of wait time. 22:40 Patient has correct armband on for positive identification. Pulse ox on. NIBP on. ao 23:18 Say Colon MD is Referral Physician. rn 23:26 No provider procedures requiring assistance completed. Patient did not have IV access ao during this emergency room visit. Administered Medications: 22:50 Not Given (Duplicate Order): Decadron 10 mg IM once rn 23:25 Not Given (Patient Refused): Flexeril 10 mg PO once ao 23:25 Not Given (Patient Refused): predniSONE 60 mg PO once ao Outcome: 23:18 Discharge ordered by . rn 23:26 Discharged to home ambulatory. ao 23:26 Condition: stable 23:26 Discharge instructions given to patient, Instructed on discharge instructions, follow up and referral plans. Demonstrated understanding of instructions, follow-up care, medications, Prescriptions given X 2. 23:27 Patient left the ED. ao Signatures: Gilberto Burleson MD MD rn Ortiz, Alex, RN RN ao Love, Angelica al2
== END 2018-06-25 23:27 | disposition home or self-care (01) ==
LOC: ER 22:19
DX: M54.2 Cervicalgia (principal)
CPT/HCPCS: 72040; 99283; J7512

== ENCOUNTER 2021-08-19 07:41 | Emergency (ER) | payer BC ==
[2021-08-19 08:34] LABS: Absolute Lymphocytes (CBC) 1.1 K/uL (0.7-4.9); Basophils % 0.5 % (0-1.3); Hematocrit 40.1 % (36.0-45.0); Lymphocytes % 26.8 % (15.3-44.8); MPV 7.6 fL (7.6-11.3); RBC Red Blood Cell Count 4.91 M/uL (3.86-4.86)
[2021-08-19] MEDS ORDERED: NA CHLORIDE 0.9% 1,000 ML ONE (08:46)
[2021-08-19] MEDS ORDERED: CEFTRIAXONE 1000 MG/VIAL ONE (08:46)
[2021-08-19 08:51] LABS: ALT/SGPT 17 U/L (12-78); AST/SGOT 13 U/L (15-37); Albumin 3.9 g/dL (3.4-5.0); Alkaline Phosphatase 55 U/L (45-117); BUN Blood Urea Nitrogen 7 mg/dL (7-18); Bicarbonate 28 mmol/L (21-32); Bilirubin Direct < 0.1 mg/dL (0-0.2); Bilirubin Total 0.3 mg/dL (0.2-1.0); Glucose Level 102 mg/dL (74-106); Lipase 161 U/L (73-393); Potassium 3.6 mmol/L (3.5-5.1); Protein, Total 7.6 g/dL (6.4-8.2); Sodium Level 141 mmol/L (136-145)
--- NOTE | 2021-08-19 08:53 | EDPHYS ---
Physician Documentation [facility] Name: Sangita Goncalves Age: 41 yrs Sex: Female : 1980 Arrival Date: 08/19/2021 Time: 07:44 Bed 17 Private MD: Chen Cosme ED Physician Re Robison HPI: 08/19 08:20 This 41 yrs old Female presents to ER via Ambulatory with complaints of Flank ma2 Pain. 08:20 The patient complains of pain in the left mid back and right mid back. Associated signs ma2 and symptoms: Pertinent positives: dysuria, Pertinent negatives: urinary frequency, hematuria, nausea, pain radiating to the lower extremities. Severity of pain: At its worst the pain was very mild in the emergency department the pain is unchanged. The patient has experienced similar episodes in the past. has uti took Augmentin and Cipro, had normal ct a/p. 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 - Social history:: Smoking status: Patient denies any tobacco usage or history of. ROS: 08:21 Constitutional: Negative for fever, chills, and weight loss. ma2 08:21 All other systems are negative. Exam: 08:21 Constitutional: This is a well developed, well nourished patient who is awake, alert, ma2 and in no acute distress. Neck: Trachea midline, no thyromegaly or masses palpated, and no cervical lymphadenopathy. Supple, full range of motion without nuchal rigidity, or vertebral point tenderness. No Meningismus. Chest/axilla: Normal chest wall appearance and motion. Nontender with no deformity. No lesions are appreciated. Cardiovascular: Regular rate and rhythm with a normal S1 and S2. No gallops, murmurs, or rubs. Normal PMI, no JVD. No pulse deficits. Respiratory: Lungs have equal breath sounds bilaterally, clear to auscultation and percussion. No rales, rhonchi or wheezes noted. No increased work of breathing, no retractions or nasal flaring. Abdomen/GI: Soft, non-tender, with normal bowel sounds. No distension or tympany. No guarding or rebound. No evidence of tenderness throughout. Back: No spinal tenderness. No costovertebral tenderness. Full range of motion. Skin: Warm, dry with normal turgor. Normal color with no rashes, no lesions, and no evidence of cellulitis. MS/ Extremity: Pulses equal, no cyanosis. Neurovascular intact. Full, normal range of motion. Neuro: Awake and alert, GCS 15, oriented to person, place, time, and situation. Cranial nerves II-XII grossly intact. Motor strength 5/5 in all extremities. Sensory grossly intact. Cerebellar exam normal. Normal gait. Vital Signs: 07:56 BP 123 / 76; Pulse 70; Resp 16; Temp 98.2; Pulse Ox 96% on R/A; Weight 56.7 kg; Height ll1 5 ft. 7 in. (170.18 cm); Pain 7/10; 08:34 BP 123 / 76; Pulse 70; Resp 16; Temp 98.2; Pulse Ox 96% on R/A; Pain 5/10; jw6 07:56 Body Mass Index 19.58 (56.70 kg, 170.18 cm) ll1 MDM: 08:12 Patient medically screened. [facility] 08:21 Differential diagnosis: pyelonephritis, UTI, pancreatitis. [facility] 08:52 Data reviewed: vital signs, nurses notes. Counseling: I had a detailed discussion with ma2 the patient and/or guardian regarding: the historical points, exam findings, and any diagnostic results supporting the discharge/admit diagnosis, the presence of at least one elevated blood pressure reading (>120/80) during this emergency department visit, the need for outpatient follow up. Response to treatment: the patient's symptoms have markedly improved after treatment. 08/19 08:14 Order name: Basic Metabolic Panel; Complete Time: 08:52 [facility] 08/19 08:14 Order name: CBC with Diff; Complete Time: 08:47 [facility] 08/19 08:14 Order name: Hepatic Function; Complete Time: 08:52 az2 08/19 08:14 Order name: Lipase; Complete Time: 08:52 [facility] 08/19 09:16 Order name: Urine Dipstick-Ancillary EDMS 08/19 07:47 Order name: Urine Dipstick-Ancillary (obtain specimen) ma2 08/19 07:47 Order name: Urine Test (obtain specimen) ma2 08/19 08:14 Order name: IV Saline Lock; Complete Time: 08: ma2 08/19 08:14 Order name: Labs collected and sent; Complete Time: ma2 08/19 08:16 Order name: Renal Ultrasound-Complete EDMS Administered Medications: : Drug: Rocephin (cefTRIAXone) 1 grams Route: IV; Rate: calculated rate; Site: left [facility] antecubital; : Drug: NS 0.9% 1000 ml Route: IV; Rate: 1 bolus; Site: left antecubital; [facility] Disposition Summary: 08/19/21 08:53 Discharge Ordered Location: Home ma2 Condition: Stable ma2 Diagnosis - Acute cystitis ma2 Followup: ma2 - With: Private Physician - When: Tomorrow - Reason: Continuance of care Discharge Instructions: - Discharge Summary Sheet ma2 - Urinary Tract Infection, Adult, [id number] ma2 Forms: - Medication Reconciliation Form ma2 - Thank You Letter ma2 - Antibiotic Education ma2 - Prescription Opioid Use ma2 Prescriptions: - cefpodoxime 200 mg Oral Tablet - take 1 tablet by ORAL route every 12 hours with food; 20 tablet; Refills: 0, ma2 Product Selection Permitted Signatures: Dispatcher [employer] EDMS Re Robison MD MD ma2 Chay Sagastume, RN RN 1 Jasmyn Hernandez 6 Corrections: (The following items were deleted from the chart) : 08:15 Abdomen Limited+[id number] ordered. EDMS EDMS
--- NOTE | 2021-08-19 08:53 | ER ---
Nurse's Notes [facility] Name: Sangita Goncalves Age: 41 yrs Sex: Female : 1980 Arrival Date: 08/19/2021 Time: 07:44 Bed 17 Private MD: Chen Cosme Diagnosis: Acute cystitis Presentation: 08/19 07:56 Chief complaint: Patient states: "UTI" and bilateral flank pain for 2 months. Has been ll1 on 5 antibiotics for the past two months. Low grade fevers at times. Coronavirus screen: Vaccine status: Patient reports being unvaccinated. Client denies travel out of the [place] in the last 14 days. At this time, the client does not indicate any symptoms associated with coronavirus-19. Ebola Screen: Patient denies travel to an Ebola-affected area in the 21 days before illness onset. Initial Sepsis Screen: Does the patient meet any 2 criteria? No. Patient's initial sepsis screen is negative. Does the patient have a suspected source of infection? Yes: Dysuria/Frequency/Urgency/UTI. Risk Assessment: Do you want to hurt yourself or someone else? Patient reports no desire to harm self or others. Onset of symptoms was June 19, 2021. 07:56 Method Of Arrival: Ambulatory 1 07:56 Acuity: EMANI 3 ll1 Triage Assessment: 08:31 General: Appears in no apparent distress. Behavior is calm, cooperative. Pain: jw6 Complains of pain in lumbar area, low back area, mid back area, left mid back and right mid back. EENT: No deficits noted. Neuro: No deficits noted. Cardiovascular: No deficits noted. Respiratory: No deficits noted. GI: No deficits noted. : No deficits noted. Derm: No deficits noted. Musculoskeletal: No deficits noted. 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 - Social history:: Smoking status: Patient denies any tobacco usage or history of. Screenin:29 Abuse screen: Denies threats or abuse. Denies injuries from another. Nutritional jw6 screening: No deficits noted. Tuberculosis screening: No symptoms or risk factors identified. Fall Risk IV access (20 points). Assessment: 08:29 General: Appears in no apparent distress. Behavior is calm, cooperative. Pain: jw6 Complains of pain in lumbar area, low back area, mid back area, left low back, right mid back and right low back. Neuro: No deficits noted. Cardiovascular: Reports. Respiratory: No deficits noted. Respiratory: No deficits noted. GI: No deficits noted. : Reports UTI x 2 months. EENT: No deficits noted. Derm: No deficits noted. Musculoskeletal: No deficits noted. Vital Signs: 07:56 BP 123 / 76; Pulse 70; Resp 16; Temp 98.2; Pulse Ox 96% on R/A; Weight 56.7 kg; Height ll1 5 ft. 7 in. (170.18 cm); Pain 7/10; 08:34 BP 123 / 76; Pulse 70; Resp 16; Temp 98.2; Pulse Ox 96% on R/A; Pain 5/10; jw6 07:56 Body Mass Index 19.58 (56.70 kg, 170.18 cm) ll1 ED Course: 07:44 Patient arrived in ED. am2 07:44 Chen Cosme MD is Private Physician. am2 07:47 Re Robison MD is Attending Physician. ma2 07:56 Arm band placed on Patient placed in an exam room, on a stretcher. ll1 07:58 Triage completed. ll1 08:16 Jasmyn Hernandez is Primary Nurse. jw6 08:26 Initial lab(s) drawn, by wi, sent to lab. Inserted saline lock: 20 gauge in left iw antecubital area, using aseptic technique. Blood collected. 08:29 Patient has correct armband on for positive identification. Bed in low position. Call jw6 light in reach. Side rails up X 1. 08:29 No provider procedures requiring assistance completed. jw6 08:53 Renal Ultrasound-Complete In Process Unspecified. EDMS 09:19 IV discontinued, intact, bleeding controlled, No redness/swelling at site. Pressure jw6 dressing applied. Administered Medications: 08:29 Drug: Rocephin (cefTRIAXone) 1 grams Route: IV; Rate: calculated rate; Site: left jw6 antecubital; 08:29 Drug: NS 0.9% 1000 ml Route: IV; Rate: 1 bolus; Site: left antecubital; jw6 Outcome: 08:53 Discharge ordered by . cielo 09:18 Discharged to home ambulatory. jw6 09:18 Condition: good 09:18 Discharge instructions given to patient, family, Instructed on discharge instructions, follow up and referral plans. medication usage, Demonstrated understanding of instructions, follow-up care, medications, Prescriptions given X 1. 09:19 Patient left the ED. jw6 Signatures: Dispatcher [employer] EDShana Crowley RN RN Imelda Rodriguez Mohammad, MD MD ma2 Lewis, Lynsay, RN RN ll1 Jasmyn Hernandez jw6 Corrections: (The following items were deleted from the chart) 08:34 08:33 81.65 kg; Height 5 ft. 7 in.; BMI: 28.1; Pain 5/10; jw6 jw6
--- NOTE | 2021-08-19 09:08 | RAD REPORT ---
EXAM DESCRIPTION: US - Renal Ultrasound-Complete - 08/19/2021 8:53 am CLINICAL HISTORY: bilat flank pain, renal US COMPARISON: Abdomen Exam Complete dated 12/16/2018 FINDINGS: Both kidneys are normal in size, shape and echotexture. The right kidney measures 11.4. No hydronephrosis, focal mass or perinephric fluid. The left kidney measures 12. Left-sided pelvicaliectasis. No suspicious mass. No perinephric fluid. The urinary bladder is incompletely distended without gross abnormality seen. IMPRESSION: Left-sided pelvicaliectasis. No carmen hydronephrosis.
[2021-08-19 09:16] LABS: Urine Blood Negative (Negative); Urine Glucose Negative (Negative); Urine Protein Negative (Negative); Urine pH 7.5 (5.0-7.0)
[2021-08-19 09:24] VITALS: BP 123/76; TEMP 98.2; O2SAT 96
== END 2021-08-19 09:19 | disposition home or self-care (01) ==
LOC: ER 07:41
DX: N30.00 Acute cystitis without hematuria (principal); E03.9 Hypothyroidism, unspecified; Z88.1 Allergy status to other antibiotic agents
CPT/HCPCS: 85025; 80048; 36415; 80076; 81003; 83690; 76770; 96374; 99284; J7030

== ENCOUNTER 2022-08-11 22:50 | Emergency (ER) | payer BC ==
--- OUTSIDE RECORDS SUMMARY | 2022-08-11 22:54 | XMS REPORT | Continuity of Care Document ---
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 [facility] [id number] 870 Idamay 00:00:00 00:00:00 ODILIA [address] 2021-12-02 2021-12-02 Outpatient Sadia Booth [facility] LA0 [id number] [facility] 12:00:00 12:00:[address] [place] [address] 2021-12-01 2021-12-01 Transcribe Hong 1.2.840.1 [id number] 656 [id number] Methodi 00:00:00 00:00:00 Orders Odilia 56001.1.[address] 3.430.2.7 Hospit a .3.594931 l .8 2021-11-28 2021-11-28 Telephone Turner 1.2.840.1 [id number] 2100 [id number] Methodi 00:00:00 00:00:[address] [place] [address]ia [address] 3.430.2.7 Hospit a .3.627742 l .8 2021-11-28 2021-11-28 Telephone Tarcy, 1.2.840.1 [id number] 2099 360315 Methodi 00:00:00 00:00:[address] Dewi 3.430.2.7 [facility] .3.416853 l .8 2021-11-25 2021-11-25 Outpatient [facility] PRIV PRIV 155 [id number] [facility] 01:46:00 01:46:00 alandro_C [id number] [facility] 2021-11-21 2021-11-21 Outpatient [facility] PRIV PRIV 155 [id number] [facility] 05:30:00 05:30:00 _Fisher_H [id number] [facility] 2021-11-18 2021-11-18 Outpatient [facility] PRIV PRIV 155 [id number] [facility] 11:10:00 11:10:00 _Fisher_H [id number] [facility] 2021-11-17 2021-11-17 Outpatient [facility] PRIV PRIV 155 [id number] [facility] 05:26:00 05:26:00 _Fisher_H [id number] [facility] 2021-11-15 2021-11-15 Outpatient [facility] PRIV PRIV 155 [id number] [facility] 03:07:00 03:07:00 _Fisher_H [id number] [facility] 2021-11-09 2021-11-09 (TEL) STLMLC STLMLC [id number] Co mmon 00:00:00 00:00:00 [facility] 2021-10-31 2021-10-31 Travel 1.2.840.1 1.2.092.352 6441 [id number] Methodi 00:00:00 00:00:[address] 3.430.2.7 0.2.7.3.698 [facility] .3.568447 084.8 l .8 2021-08-26 2021-08-26 (TEL) STLMLC STLMLC [id number] Co mmon 00:00:00 00:00:00 [facility] 2021-08-19 2021-08-19 (TEL) STLMLC STLMLC [id number] Co mmon 00:00:00 00:00:00 [facility] 2021-08-16 2021-08-16 OFFICE STLMLC STLMLC [id number] Co mmon 00:00:00 00:00:00 VISIT EST Spir it PT LEVEL 3 [facility] 2021-08-03 2021-08-03 OFFICE STLMLC STLMLC [id number] Co mmon 00:00:00 00:00:00 VISIT EST Spir it PT LEVEL 3 [facility] 2021-08-01 2021-08-01 (TEL) STLMLC STLMLC [id number] Co mmon 00:00:00 00:00:00 [facility] 2021-08-01 2021-08-01 (TEL) STLMLC STLMLC [id number] Co mmon 00:00:00 00:00:00 [facility] 2021-07-22 2021-07-22 (TEL) STLMLC STLMLC [id number] Co mmon 00:00:00 00:00:00 [facility] 2021-07-21 2021-07-21 OFFICE STLMLC STLMLC [id number] Co mmon 00:00:00 00:00:00 VISIT NEW Spir it PT LEVEL 3 [facility] 2021-07-20 2021-07-20 OFFICE STLMLC STLMLC [id number] Co mmon 00:00:00 00:00:00 VISIT EST Spir it PT LEVEL 3 [facility] 2021-07-11 2021-07-11 (TEL) STLMLC STLMLC [id number] Co mmon 00:00:00 00:00:00 [facility] 2021-07-07 2021-07-07 OFFICE STLMLC STLMLC [id number] Co mmon 00:00:00 00:00:00 VISIT EST Spir it PT LEVEL 3 [facility] 2021-05-18 2021-05-18 Outpatient STLMLC STLMLC [id number] Common 00:00:00 00:00:00 [facility] 2021-05-12 2021-05-12 Outpatient STLMLC STLMLC [id number] Common 00:00:00 00:00:00 [facility] 2021-05-12 2021-05-12 Outpatient STLMLC STLMLC [id number] Common 00:00:00 00:00:00 [facility] 2021-05-12 2021-05-12 Outpatient STLMLC STLMLC [id number] Common 00:00:00 00:00:00 [facility] 2020-12-03 2020-12-03 Outpatient STLMLC STLMLC [id number] Common 00:00:00 00:00:00 [facility] 2020-11-19 2020-11-19 Outpatient STLMLC STLMLC [id number] Common 00:00:00 00:00:00 [facility] 2019-10-29 2019-10-29 [id number] Common 09:56:00 09:56:[address] [facility] [facility] 2019-09-26 2019-09-26 [facility] [id number] Common 16:14:00 16:14:[address] [facility] [facility] 2019-09-09 2019-09-09 [facility] [id number] Common 17:19:00 17:19:[address] [facility] [facility] 2019-08-13 2019-08-13 Out[facility] [id number] Common 10:40:00 10:40:[address] [facility] [facility] 2019-08-06 2019-08-06 Out[facility] [id number] Common 16:34:00 16:34:[address] [facility] [facility] 2019-07-28 2019-07-28 Out[facility] [id number] Common 15:42:00 15:42:[address] [facility] [facility] 2019-06-16 2019-06-16 Out[facility] [id number] Common 16:44:00 16:44:[address] [facility] [facility] 2019 2019 Out[facility] [id number] Common 12:28:00 12:28:[address] [facility] [facility] 2018-12-27 2018-12-27 Out[facility] [id number] Common 10:15:00 10:15:[address] [facility] [facility] 2018-12-06 2018-12-06 Out[facility] [id number] Common 09:44:00 09:44:[address] [facility] [facility] 2018-12-05 2018-12-05 Out[facility] [id number] Common 10:15:00 10:15:[address] [facility] [facility] 2018-12-05 2018-12-05 Out[facility] [id number] Common 10:11:00 10:11:[address] [facility] [facility] 2018-11-26 2018-11-26 Out[facility] [id number] Common 08:30:00 08:30:[address] [facility] [facility] 2018-10-28 2018-10-28 Out[facility] [id number] Common 16:48:00 16:48:[address] [facility] [facility] 2018-10-24 2018-10-24 Outpatient [facility] [id number] Common 14:30:00 14:30:[address] [facility] [facility] 2018-10-21 2018-10-21 Outpatient [facility] [id number] Common 09:20:00 09:20:[address] [facility] [facility] 2018-10-17 2018-10-17 Outpatient [facility] [id number] Common 12:05:00 12:05:[address] [facility] [facility] 2018-10-10 2018-10-10 Outpatient Siomara Stringert 23 [id number] Common 14:16:00 14:16:00 [facility] [employer] [employer] [facility] 2018-09-24 2018-09-24 Outpatient Siomara Stringert 23 [id number] Common 11:15:00 11:15:00 [facility] [employer] [facility] Results Test Description Test Time Test Comments Results Result Comments Source Urine culture 2022-06-11 22:35:00 Test Item Value Reference Range Interpretation Comme nts Urine culture (test code = SEE NOTE A CULTURE, URINE, ROUTINE Micro 630-4) Number: [id number] Test Status: Final Specimen Source: Urine, clean catch Spe cimen Quality: Adequate Result : Greater than 100,000 CFU/mL of Escherichia coli E.coli --- INT SKYLAR AMOX/CL AVULANATE S 4 AMPICILLIN R >= 32 AMP/SULBACTAM I 16 CEFAZOLIN NR <=4 2 CEFE PIME S <=1 CEFTAZIDIME S < =1 CEFTRIAXONE S <=1 CIPROFLOX ACIN S <=0.25 GENTAMICIN S &l t;=1 IMIPENEM S <=0.25 LEVOFLOX ACIN S <=0.12 NITROFURANTOIN S <=16 PIP/TAZOBACTAM S <=4 TOBRAMYCIN S <= 1 TRIMETHOPRIM/DRUMMOND LFA R >=320 S=Susceptible I =Intermediate R=Resistant * = Not TestedNR = Not Reported NN = See Therapy Comment s THERAPY COMMENTS Note 1 : For infections othe r than uncomplicated U TI caused by E. coli, K. pneumo niae or P. mirabilis: Cefa zolin is resistant if IA C > or = 8 mcg/mL. (Distin guishing susceptible jamal matt intermediate fo r isolates with SKYLAR < or = 4 mc g/mL requires additional test ing.) Note 2: For uncomplicat ed UTI caused by E. coli, K. pneumoniae or P. mirabilis: C efazolin is susceptible if SKYLAR <32 mcg/mL and predicts drummond sceptible to the oral agents cefaclor, cefdinir, cefpo doxime, cefprozil, cefu roxime, cephalexin and loracarbef. RAC (test code = RAC) Performing Organization Information: Site ID: RGA Name: [facility] Lab Address: [address] [place] [id number] Director: Logan Veloz Lab Interpretation (test Abnormal code = 89415-7) [facility] [id number] 14:44:00 Test Item Value Reference Range Interpretation Comments Total volume, urine (test code = 2338) 11 ml [facility] urinalysis [id number] 14:42:00 Test Item Value Reference Range Interpretation Comments Color urine, POC (test Yellow code = 9978188) Clarity urine, POC Clear (test code = 4199992) Glucose urine, POC Negative Negative (test code = 8136884) Bilirubin urine, POC Negative Negative (test code = 7067698) Ketones urine, POC Negative Negative (test code = 3558391) Specific gravity urine, 1.005-1.030 POC (test code = 3445474) Blood urine, POC (test Negative Negative code = 2595384) pH urine, POC (test See_Comment [Automa yaima message] code = 1566126) The system [facility] generated this result transmitted ref erence range: 5.0, 5.5 , 6.0, 6.5, 7.0, 7.5, 8.0, 8.5. The refere nce range was not u sed to interpret this result as normal/abnor mal. Protein urine, POC Negative Negative (test code = 4695363) Urobilinogen urine, POC <2.0 See_Comment [Au tomated message] (test code = 1783953) The sy stem which generated this result transmitted ref erence range: <=2.0. T he reference range was not used to int erpret this result as normal/abnormal . Nitrite urine, POC Negative Negative (test code = 2482046) Leukocyte esterase Negative Negative urine, POC (test code = 9072940) [id number] [facility]:00 Test Item Value Reference Range Interpretation Comments Specific Sherman (test code = 1.006 1.005-1.030 2965-2) pH (test code = 5803-2) 6.5 5.0-7.5 Urine-Color (test code = 5778-6) Yellow Yellow Appearance (test code = 5767-9) Clear Clear WBC Esterase (test code = 5799-2) Trace Negative Protein (test code = 36582-3) Negative Negative/Trace Glucose (test code = 2349-9) Negative Negative Ketones (test code = 2514-8) Negative Negative Occult Blood (test code = 5794-3) Negative Negative Bilirubin (test code = 5770-3) Negative Negative Urobilinogen,Semi-Qn (test code = 0.2 0.2-1.0 17923-8) Nitrite, Urine (test code = Negative Negative 5802-4) Microscopic Examination (test code See below: = 10231-5) Urine Culture,[id number] 00:00:00 Test Item Value Reference Range Interpretation Comments Urine Culture,Comprehensive Final report (test code = 630-4) Comp. Metabolic Panel (14) (CMP)2021-07-20 00:00:00 Test Item Value Reference Range Interpretation Comments Glucose (test code = 2345-7) 77 65-99 BUN (test code = 3094-0) 9 6-24 Creatinine (test code = 2160-0) 0.65 0.57-1.00 eGFR If NonAfricn Am (test code = 111 >59 27716-3) eGFR If Africn Am (test code = 50420-2) 128 >59 BUN/Creatinine Ratio (test code = 14 07-14 3097-3) Sodium (test code = 2951-2) 140 134-144 Potassium (test code = 2823-3) 3.8 3.5-5.2 Chloride (test code = 2075-0) 99 96-106 Carbon Dioxide, Total (test code = 2028-06) Calcium (test code = 76833-9) 9.8 8.7-10.2 Protein, Total (test code = 2885-2) 7.6 6.0-8.5 Albumin (test code = 1751-7) 5.1 3.8-4.8 Globulin, Total (test code = 68417-6) 2.5 1.5-4.5 A/G Ratio (test code = 1759-0) 2.0 1.2-2.2 Bilirubin, Total (test code = 1975-2) 0.5 0.0-1.2 Alkaline Phosphatase (test code = 55 44-121 6768-6) AST (SGOT) (test code = 1920-8) 17 0-40 ALT (SGPT) (test code = 1742-6) 10 0-32 - US TRANSVAGINAL [id number] 11:18:00 Patient Name: JEANINE THOMAS Unit No: [id number] EXAMS: CPT CODE: [id number] US TRANSVAGINAL W/PELVIS 96862 Pelvic US performed October 01, 2019. COMPARISON: September 19, 2019. CLINICAL HISTORY: DUB. DISCUSSION: Real-time kirk scale sonography performed of the pelvis via the transabdominal and transvaginal approach. The uterus measures 76 x 34 x 55 mm and contains no focal myometrial abnormalities. The endometrium is homogenous and measures 9 mm in thickness. The ovaries are sonographically normal in appearance with the right measuring 43 x 25 x 27 mm and the left measuring 33 x 19 x 29 mm. Involuting follicle in the right ovary measuring 24 x 14 x 18 mm. Subcentimeter follicles are seen bilaterally. Normal flow seen in both ovaries. No significant free fluid in seen in the cul de sac. IMPRESSION: 1. Normal pelvic ultrasound. at 1118 Reported and signed by: Danitza Junior MD CC: Technologist: Zaina Ortiz RDMS, RVT Probe: [id number] D/ (1118) tDALIA Orig Print D/T: S: 10/01/2019 (1121) [facility] NAME: JEANINE THOMAS Radiology Department PHYS: SLADE Lolly Alonzo [address] : 1980 AGE: 39 SEX: F [place], [place] [address] LOC: DamiRAD PHONE #: [phone] EXAM DATE: 10/01/2019 STATUS: REG CLI FAX #: [phone] RAD NO: [id number] Page 1 Signed Report Patient Name: JEANINE THOMAS Unit No: [id number] EXAMS: CPT CODE: [id number] US TRANSVAGINAL W/PELVIS 07814 (Continued) [facility] NAME: JEANINE THOMAS Radiology Department PHYS: [facility] Lolly Alonzo [address] : 1980 AGE: 39 SEX: F [place] [id number] LOC: F.RAD PHONE #: [phone] EXAM DATE: 10/01/2019 STATUS: REG CLI FAX #: [phone] RAD NO: [id number] Page 2 Signed Report- DUP AB/PEL/SC/[id number] 11:18:00 Patient Name: JEANINE THOMAS Unit No: [id number] EXAMS: CPT CODE: [id number] DUP AB/PEL/SC/LTD 42071 Pelvic US performed October 01, 2019. COMPARISON: September 19, 2019. CLINICAL HISTORY: DUB. DISCUSSION: Real-time kirk scale sonography performed of the pelvis via the transabdominal and transvaginal approach. The uterus measures 76 x 34 x 55 mm and contains no focal myometrial abnormalities. The endometrium is homogenous and measures 9 mm in thickness. The ovaries are sonographically normal in appearance with the right measuring 43 x 25 x 27 mm and the left measuring 33 x 19 x 29 mm. Involutingfollicle in the right ovary measuring 24 x 14 x 18 mm. Subcentimeter follicles are seen bilaterally.Normal flow seen in both ovaries. No significant free fluid in seen in the cul de sac. IMPRESSION: 1. Normal pelvic ultrasound. at 1118 Reported and signed by: Danitza Junior MD CC: Technologist: Zaina Ortiz RDMS, RVT Probe: Trnscrbd D/T: (1118) Carlos Orig Print D/T: S: 10/01/2019 (1121) [facility] NAME: JEANINE THOMAS Radiology Department PHYS: Lolly Alonzo [address] : 1980 AGE: 39 SEX: F [place], [place] [address] LOC: DamiRAD PHONE #: [phone] EXAM DATE: 10/01/2019 STATUS: REG CLI FAX #: [phone] RAD NO: [id number] Page 1 Signed Report Patient Name: JEANINE THOMAS Unit No: [id number] EXAMS: CPT CODE: [id number] DUP AB/PEL/SC/LTD 30562 (Continued) [facility] NAME: JEANINE THOMAS Radiology Department PHYS: [address] Lolly Alonzo [address] : 1980 AGE: 39 SEX: F [place], [place] [address] LOC: DamiRAD PHONE #: [phone] EXAM DATE: 10/01/2019 STATUS: REG CLI FAX #: [phone] RAD NO: [id number] Page 2 Signed Report- US PELVIS COMPLETE 2019-10-01 11:18:00 Patient Name: JEANINE THOMAS Unit No: [id number] EXAMS: CPT CODE: [id number] US PELVIS COMPLETE 92078 Pelvic US performed October 01, 2019. COMPARISON: September 19, 2019. CLINICAL HISTORY: DUB. DISCUSSION: Real- time kirk scale sonography performed of the pelvis via the transabdominal and transvaginal approach. The uterus measures 76 x 34 x 55 mm and contains no focal myometrial abnormalities. Theendometrium is homogenous and measures 9 mm in thickness. The ovaries are sonographically normal in appearance with the right measuring 43 x 25 x 27 mm and the left measuring 33 x 19 x 29 mm. Involuting follicle in the right ovary measuring 24 x 14 x 18 mm. Subcentimeter follicles are seen bilaterally. Normal flow seen in both ovaries. No significant free fluid in seen in the cul de sac. IMPRESSION: 1. Normal pelvic ultrasound. at 1118 Reported and signed by: Danitza Junior MD CC: Technologist: Zaina Ortiz RDMS, VALENTET Probe: Trnscrbd D/ (1118) t.[email or web address].NMG Orig Print D/T: S: 10/01/2019 (1121) [facility] NAME: JEANINE THOMAS Radiology Department PHYS: Lolly Alonzo [address] : 1980 AGE: 39 SEX: F [place] [address] LOC: DamiRAD PHONE #: [phone] EXAM DATE: 10/01/2019 STATUS: REG CLI FAX #: [phone] RAD NO: [id number] Page 1 Signed Report Patient Name: JEANINE THOMAS Unit No: [id number] EXAMS: CPT CODE: [id number] US PELVIS COMPLETE 00644 (Continued) [facility] NAME: JEANINE THOMAS Radiology Department PHYS: Erika Alonzo [address] : 1980 AGE: 39 SEX: F [place], [place] [address] LOC:DamiRAD PHONE #: [phone] EXAM DATE: 10/01/2019 STATUS: REG CLI FAX #: [phone] RAD NO: [id number] 2 Signed Report
[2022-08-11 23:45] LABS: Urine Blood 3+ (Negative); Urine Glucose Negative (Negative); Urine Protein 1+ (Negative); Urine Specific Gravity 1.015 (1.005-1.030)
[2022-08-11 23:49] LABS: Hematocrit 38.7 % (36.0-45.0); Lymphocytes % 13.6 % (15.3-44.8); MCV 81.5 fL (80-100); MPV 7.6 fL (7.6-11.3); RBC Red Blood Cell Count 4.75 M/uL (3.86-4.86)
[2022-08-11] MEDS ORDERED: NA CHLORIDE 0.9% 1,000 ML ONE (23:54)
[2022-08-12 00:01] LABS: Urine Bacteria <20 /HPF (<20); Urine Mucus Slight /HPF (None Seen)
[2022-08-12] MEDS ORDERED: KETOROLAC 30 MG/ML INJ ONE (00:03)
[2022-08-12 00:06] LABS: Albumin 3.7 g/dL (3.4-5.0); Bilirubin Total 0.3 mg/dL (0.2-1.0); Protein, Total 7.5 g/dL (6.4-8.2)
--- NOTE | 2022-08-12 00:44 | ER ---
Nurse's Notes [facility] Name: Sangita Goncalves Age: 42 yrs Sex: Female : 1980 Arrival Date: 08/11/2022 Time: 22:54 Bed 14 Private MD: Diagnosis: Pyelonephritis acute;Flank pain Presentation: 08/11 23:19 Chief complaint: Patient states: Pt reports right flank pain, fever, and irritation kb3 with urination since 1400 today. Coronavirus screen: Vaccine status: Patient reports being unvaccinated. Client denies travel out of the [place] in the last 14 days. Ebola Screen: Patient negative for fever greater than or equal to 101.5 degrees Fahrenheit, and additional compatible Ebola Virus Disease symptoms Patient denies exposure to infectious person. Patient denies travel to an Ebola-affected area in the 21 days before illness onset. No symptoms or risks identified at this time. Initial Sepsis Screen: Does the patient meet any 2 criteria? No. Patient's initial sepsis screen is negative. Does the patient have a suspected source of infection? No. Patient's initial sepsis screen is negative. Risk Assessment: Do you want to hurt yourself or someone else? Patient reports no desire to harm self or others. Onset of symptoms was August 11, 2022 at 14:00. 23:19 Method Of Arrival: Ambulatory kb3 23:19 Acuity: EMANI 3 kb3 Triage Assessment: 23:20 General: Appears in no apparent distress. uncomfortable, Behavior is calm, cooperative. kb3 Pain: Complains of pain in right low back Pain does not radiate. Pain currently is 8 out of 10 on a pain scale. Quality of pain is described as aching, sharp, Pain began 1 day ago. 23:30 GI: Abdomen is flat, Bowel sounds present X 4 quads. 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 Last tetanus immunization: up to date. - Social history:: Smoking status: Patient denies any tobacco usage or history of. Screenin:30 Abuse screen: Denies threats or abuse. Nutritional screening: No deficits noted. ke1 Tuberculosis screening: No symptoms or risk factors identified. Fall Risk None identified. Assessment: 23:30 GI: Bowel sounds present X 4 quads. Abd is soft Abd is non tender. ke1 08/12 01:09 Reassessment: Patient states feeling better. Patient states symptoms have improved. ke1 Vital Signs: 08/11 23:19 BP 125 / 85; Pulse 81; Resp 20; Temp 99.4; Pulse Ox 100% ; Weight 63.5 kg; Height 5 ft. kb3 7 in. (170.18 cm); Pain 8/10; 08/12 00:37 Pain 4/10; ke1 08/11 23:19 Body Mass Index 21.93 (63.50 kg, 170.18 cm) kb3 ED Course: 08/11 22:54 Patient arrived in ED. dt4 23:00 Monty Lopez DO is Attending Physician. ms3 23:09 Larry Jacques, RN is Primary Nurse. ke1 23:20 Triage completed. kb3 23:20 Arm band placed on right wrist. Patient placed in an exam room, on a stretcher. kb3 23:30 Placed in gown. Bed in low position. Call light in reach. Side rails up X 1. ke1 23:44 Inserted saline lock: 20 gauge in right antecubital area, using aseptic technique. ke1 23:45 CBC with Diff Sent. ke1 23:45 CMP Sent. ke1 23:45 Lipase Sent. ke1 23:45 Urine Microscopic Only Sent. ke1 08/12 00:01 CT Abd/Pelvis - Without Contrast In Process Unspecified. EDMS 00:43 Keyon Sweeney MD is Referral Physician. ms3 01:11 No provider procedures requiring assistance completed. ke1 01:11 IV discontinued. ke1 Administered Medications: 08/11 23:57 Drug: NS 0.9% 1000 ml Route: IV; Rate: 1 bolus; Site: right antecubital; ke1 08/12 00:30 Follow up: IV Status: Completed infusion ke1 00:05 Drug: Ketorolac 15 mg Route: IVP; Site: right antecubital; ke1 00:37 Follow up: Pain 4/10 Adult; Response: Pain is decreased ke1 01:05 Drug: Rocephin (cefTRIAXone) 1 grams Route: IV; Rate: calculated rate; Site: right ke1 antecubital; 01:08 Follow up: Response: No adverse reaction ke1 01:08 Follow up: IV Status: Completed infusion ke1 Medication: 01:11 VIS not applicable for this client. ke1 Outcome: 00:43 Discharge ordered by . ms3 01:11 Discharged to home ambulatory. ke1 01:11 Condition: good 01:11 Discharge instructions given to patient. 01:12 Patient left the ED. ke1 Addendum: 08/14/2022 16:55 Addendum: Culture Results: Positive urine culture. No further action required. Bacteria s s sensitive to prescribed antibiotic. Phone call Attempt #1 Called patient who states she is still having some symptoms, but is starting to feel much better and has a follow up appointment with Dr. Sweeney in two days. Signatures: Dispatcher [employer] EDVA Donna Sanchez, RN RN Monty Kim DO DO ms3 Larry Jacques RN RN ke1 Carmen Meyer RN RN kb3 Gin Tello dt4 Corrections: (The following items were deleted from the chart) 08/11 23:24 23:19 BP 125 / 85; Pulse 81bpm; Resp 20bpm; Pulse Ox 100%; Pain 8/10; kb3 kb3
--- NOTE | 2022-08-12 00:44 | EDPHYS ---
Physician Documentation [facility] Name: Sangita Goncalves Age: 42 yrs Sex: Female : 1980 Arrival Date: 08/11/2022 Time: 22:54 Bed 14 Private MD: ED Physician Monty Lopez HPI: 08/12 00:43 This 42 yrs old Unknown Female presents to ER via Ambulatory with complaints of ms3 Abdominal Pain, Nausea/Vomiting, Fever. 00:43 42-year-old female with past medical history of hypothyroidism and frequent urinary ms3 tract infections presents for right flank pain that she rates a 7/10. Patient states that discomfort waxes and wanes. Patient states the discomfort began at 2 PM. Patient states the pain is worse when sitting up. Patient denies alleviating factors. Patient endorses frequency, dysuria. Patient denies urinary urgency, fevers, chills. 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 Last tetanus immunization: up to date. - Social history:: Smoking status: Patient denies any tobacco usage or history of. ROS: 08/12 00:43 Constitutional: Negative for fever, and chills. ENT: Negative for injury, pain, and ms3 discharge, Neck: Negative for injury, pain, and swelling. MS/Extremity: Negative for injury and deformity, Skin: Negative for injury, rash, and discoloration. Abdomen/GI: Positive for right flank pain. All other systems are negative. Exam: 00:43 Constitutional: This is a well developed, well nourished patient who is awake, alert, ms3 and in no acute distress. Head/Face: Normocephalic, atraumatic. Neck: Trachea midline, no cervical lymphadenopathy. Supple, full range of motion without nuchal rigidity, or vertebral point tenderness. No Meningismus. Chest/axilla: Normal chest wall appearance and motion. Nontender with no deformity. Cardiovascular: Regular rate and rhythm with a normal S1 and S2. No gallops, murmurs, or rubs. Normal PMI, no JVD. No pulse deficits. Respiratory: Lungs have equal breath sounds bilaterally, clear to auscultation and percussion. No rales, rhonchi or wheezes noted. No increased work of breathing, no retractions or nasal flaring. Abdomen/GI: Soft, non-tender, with normal bowel sounds. No distension or tympany. No guarding or rebound. No evidence of tenderness throughout. 00:43 Back: pain, that is moderate, of the right flank, ROM is normal, normal spinal alignment noted, CVA tenderness, that is moderate, is noted on the right, vertebral tenderness, is not appreciated, muscle spasm, is not present. Vital Signs: 08/11 23:19 BP 125 / 85; Pulse 81; Resp 20; Temp 99.4; Pulse Ox 100% ; Weight 63.5 kg; Height 5 ft. kb3 7 in. (170.18 cm); Pain 8/10; 08/12 00:37 Pain 4/10; ke1 08/11 23:19 Body Mass Index 21.93 (63.50 kg, 170.18 cm) kb3 MDM: 08/11 23:27 Patient medically screened. ms3 08/12 00:43 Data reviewed: vital signs, nurses notes, lab test result(s), radiologic studies, and ms3 as a result, I will discharge patient. Counseling: I had a detailed discussion with the patient and/or guardian regarding: the historical points, exam findings, and any diagnostic results supporting the discharge/admit diagnosis, lab results, radiology results, the need for outpatient follow up, to return to the emergency department if symptoms worsen or persist or if there are any questions or concerns that arise at home. ED course: Discussed labs, CT with patient and her . Patient to follow-up with Dr. Sweeney in 2 to 3 days. Patient understands agrees with plan. All questions were answered. Return precautions discussed include worsening symptoms, or any other concerns. Patient discharged with prescription for Vantin 200 mg twice daily. On reevaluation patient is alert and oriented x4, in no apparent distress, nontoxic, ambulatory in Emergency Department, tolerating p.o.. 08/11 23:26 Order name: CBC with Diff; Complete Time: 23:58 ms3 08/11 23:26 Order name: CMP; Complete Time: 00:33 ms3 08/11 23:26 Order name: Lipase; Complete Time: 00:33 ms3 08/11 23:26 Order name: Urine Microscopic Only; Complete Time: 05:47 ms3 08/11 23:45 Order name: Urine Dipstick-Ancillary; Complete Time: 23:58 EDMS 08/12 00:28 Order name: Urine --Ancillary (enter results); Complete Time: 05:47 mb4 08/11 23:26 Order name: CT Abd/Pelvis - Without Contrast ms3 08/11 23:26 Order name: IV Saline Lock; Complete Time: 23:45 ms3 08/11 23:26 Order name: Labs collected and sent; Complete Time: 23:45 ms3 08/12 00:44 Order name: Urine Culture EDMS Administered Medications: 08/11 23:57 Drug: NS 0.9% 1000 ml Route: IV; Rate: 1 bolus; Site: right antecubital; ke1 08/12 00:30 Follow up: IV Status: Completed infusion ke1 00:05 Drug: Ketorolac 15 mg Route: IVP; Site: right antecubital; ke1 00:37 Follow up: Pain 4/10 Adult; Response: Pain is decreased ke1 01:05 Drug: Rocephin (cefTRIAXone) 1 grams Route: IV; Rate: calculated rate; Site: right ke1 antecubital; 01:08 Follow up: Response: No adverse reaction ke1 01:08 Follow up: IV Status: Completed infusion ke1 Disposition Summary: 08/12/22 00:43 Discharge Ordered Location: Home ms3 Condition: Stable ms3 Diagnosis - Pyelonephritis acute ms3 - Flank pain ms3 Followup: ms3 - With: Keyon Sweeney MD - When: 2 - 3 days - Reason: Recheck today's complaints Discharge Instructions: - Discharge Summary Sheet ms3 - Pyelonephritis, Adult ms3 Forms: - Medication Reconciliation Form ms3 - Thank You Letter ms3 - Antibiotic Education ms3 - Prescription Opioid Use ms3 Prescriptions: - cefpodoxime 200 mg Oral Tablet - take 2 tablets by ORAL route every 12 hours with food; 20 tablet; Refills: 0, ms3 Product Selection Permitted Signatures: Dispatcher [employer] EDMS Monty Lopez, DO KAMINSKI ms3 Larry Jacques, RN RN ke1 Carmen Meyer, RN RN kb3
[2022-08-12] MEDS ORDERED: CEFTRIAXONE 1000 MG/VIAL ONE (00:53)
[2022-08-12] MEDS ORDERED: NA CHLORIDE 0.9% 50 ML IV ONE (00:53)
[2022-08-12 01:08] LABS: Urine Specific Gravity/Preg 1.015 (1.005-1.030)
[2022-08-12 01:23] VITALS: BP 125/85; TEMP 99.4; O2SAT 100
--- NOTE | 2022-08-14 10:54 | RAD REPORT ---
EXAM DESCRIPTION: CT - Abdomen Pelvis Wo Contrast - 08/11/2022 11:59 pm CLINICAL HISTORY: Flank pain, kidney stone suspected TECHNIQUE: Axial computed tomography images of the abdomen and pelvis without intravenous contrast. Sagittal and coronal reformatted images were created and reviewed. This CT exam was performed usi ng one or more of the following dose reduction techniques: automated exposure control, adjustment o f the mA and/or kV according to patient size, and/or use of iterative reconstruction technique. COMPARISON: No relevant prior studies available. FINDINGS: Lung bases: Unremarkable. No mass. No consolidation. ABDOMEN: Liver: The liver is enlarged. Scattered hepatic cysts, the largest on the right measuring 3 cm. No follow-up imaging is necessary. Gallbladder and bile ducts: Unremarkable. No calcified stones. No ductal dilation. Pancreas: Unremarkable. No ductal dilation. Spleen: Unremarkable. No splenomegaly. Adrenals: Unremarkable. No mass. Kidneys and ureters: Mild right hydroureteronephrosis with mild perinephric and periureteral strand ing and urothelial thickening. Stomach and bowel: Moderate stool. No bowel obstruction. No appreciable mucosal thickening. PELVIS: Appendix: Normal caliber appendix. No findings to suggest acute appendicitis. Bladder: Unremarkable. No stones. Reproductive: Unremarkable as visualized. ABDOMEN and PELVIS: Intraperitoneal space: Unremarkable. No free air. No significant fluid collection. Bones/joints: No acute fracture. No dislocation. Soft tissues: Tiny fat-containing umbilical hernia. Vasculature: Unremarkable. No abdominal aortic aneurysm. Lymph nodes: Unremarkable. No enlarged lymph nodes. IMPRESSION: 1. Mild right hydroureteronephrosis with perinephric and periureteral stranding and ur othelial thickening. No renal, ureteral or bladder calculi. A recently passed calculus may be con sidered. Please correlate clinically for pyelonephritis/urinary tract infection. 2. Other findings as above. Electronically signed by: Yissel Márquez MD 08/12/2022 12:19 AM CDT Due to temporary technical issues with the PACS/Fluency reporting system, reports are being signed by the in house radiologists without review as a courtesy to insure prompt reporting. The interpreting radiologist is fully responsible for the content of the report.
== END 2022-08-12 01:12 | disposition home or self-care (01) ==
LOC: ER 22:50
DX: N10 Acute pyelonephritis (principal); E03.9 Hypothyroidism, unspecified; Z88.1 Allergy status to other antibiotic agents
CPT/HCPCS: 96361; 87088; 85025; 87086; 36415; 81025; 87077; 87186; 83690; 80053; 74176; 96375; 96374; 99284; J7030; 81003; 81015